=== PATIENT | female | born 2000 | race Caucasian/White ===

== ENCOUNTER → 2019-01-27 09:20 | Outpatient (CLI) | payer OTHER ==
[2010-09-28 23:30] VITALS: BMI 23.6
== END | disposition home or self-care (01) ==
LOC: D.US 09:20
PROVIDERS: ATTEND Family Medicine
DX: R22.1 Localized swelling, mass and lump, neck (principal)

== ENCOUNTER → 2019-02-04 09:04 | Outpatient (CLI) | payer OTHER ==
[2010-09-28 23:30] VITALS: BMI 23.6
== END | disposition home or self-care (01) ==
LOC: D.CT 09:04
PROVIDERS: ATTEND Family Medicine
DX: R22.1 Localized swelling, mass and lump, neck (principal)